=== PATIENT | female | born 1960 | race Two or more races ===

== ENCOUNTER → 2017-10-25 | Outpatient (CLI) | payer OTHER, MEDICAID ==
[~2017-10-25] MED LIST: GADOBUTROL 7.5 MMOL/7.5 ML PFS ONE
== END | disposition home or self-care (01) ==
LOC: CFH 07:55
PROVIDERS: ATTEND Family Medicine
DX: M67.432 Ganglion, left wrist (principal); R93.8 Abnormal findings on diagnostic imaging of other specified body structures
CPT/HCPCS: 73220; 82565; A9585